=== PATIENT | male | born 1965 | race American Indian/Alaskan Native ===

== ENCOUNTER 2022-02-03 23:38 | Emergency (ER) | payer MEDICAID, OTHER ==
[~2022-02-03] VITALS: Ht 190.5 cm; Wt 112.0 kg
[2022-02-04 01:04] LABS: Urine Bacteria FEW /hpf (None Seen); Urine Blood Negative /uL (Negative); Urine Specific Gravity 1.027 (1.001-1.035); Urine WBC 12 /hpf (0 - 3)
[2022-02-04 01:05] LABS: Basophils # (auto) 0.1 10 ^3/uL (0-0.2); Eosinophils # (auto) 0.2 10 ^3/uL (0-0.8); Monocytes # (auto) 0.6 10 ^3/uL (0-1.3); Nucleated Red Blood Cells % 0.1 %
[2022-02-04 01:07] LABS: Basophils % (auto) 0.7 % (0.0-2.0); Eosinophils % (auto) 2.6 % (0.0-7.0); Hematocrit 43.6 % (41.0-53.0); Hemoglobin 15.5 g/dL (13.5-17.5); Lymphocytes # (auto) 2.1 10 ^3/uL (0.4-5.4); Lymphocytes % (auto) 25.2 % (10.0-50.0); Mean Corpuscular Hgb Conc. 35.5 g/dL (32.0-36.0); Mean Corpuscular Volume 98.4 fL (80.0-100.0); Monocytes % (auto) 7.4 % (0.0-12.0); Neutrophils # (auto) 5.4 10 ^3/uL (1.6-8.6); Neutrophils % (auto) 64.1 % (37.0-80.0); Red Blood Cells 4.43 10^6/uL (4.5-5.90); Red Cell Distribution Width 14.1 % (11.8-14.3); White Blood Cell 8.4 10^3/uL (4.4-10.8)
[2022-02-04 01:24] LABS: Albumin 3.6 g/dL (3.4-5.0)
[2022-02-04 01:27] LABS: Total Protein 7.5 g/dL (6.4-8.2)
[2022-02-04] MEDS ORDERED: HYDROcodone-ACET 5/325MG TAB PO ONE (06:30)
[2022-02-04] MEDS ORDERED: ONDANSETRON ODT 4 MG TAB PO ONE (06:30)
[2022-02-04] MEDS ORDERED: ONDA-144 PO (07:36)
[2022-02-04] MEDS ORDERED: LEVO500T31 PO (07:36)
[2022-02-04] MEDS ORDERED: HYDR-4902 PO (07:37)
[2022-02-04 08:00] VITALS: BP 143/82
== END 2022-02-04 08:49 | disposition home or self-care (01) ==
LOC: ER 23:38
DX: K59.00 Constipation, unspecified (principal); N39.0 Urinary tract infection, site not specified; G89.29 Other chronic pain; R10.11 Right upper quadrant pain; Z88.0 Allergy status to penicillin; Z88.1 Allergy status to other antibiotic agents; Z79.2 Long term (current) use of antibiotics
CPT/HCPCS: 36415; 74176; 80053; 81001; 83690; 84484; 85025; 93005